=== PATIENT | female | born 1995 | race Caucasian/White ===

== ENCOUNTER 2023-12-03 22:12 | Inpatient (IN) | payer OTHER ==
[~2023-12-03] VITALS: Ht 162.6 cm; Wt 113.3 kg
[~2023-12-03 22:12] MED LIST: DOXY100T PO
[2023-12-03] MEDS ORDERED: DOXY-440 PO (22:22)
[2023-12-03 23:54] LABS: BASO % 0.4 % (0.0-1.0); EOS % 0.2 % (0.0-3.0); HEMOGLOBIN 10.2 g/dl (12.0-15.5); LYMPH # 1.5 10^3/uL (1.5-5.0); LYMPH % 27.3 % (24.0-44.0); MEAN CORPUSCULAR HEMOGLOBIN 23.7 pg (27.0-33.0); MEAN CORPUSCULAR VOLUME 79.1 fl (80.0-96.0); MONO # 0.7 10^3/uL (0.0-0.8); MONO % 13.2 % (2.0-8.0); NEUTROPHILS # 3.2 10^3/uL (1.5-8.5); NEUTROPHILS % 58.5 % (36.0-66.0); PLATELET COUNT, AUTOMATED 275 10^3/uL (150-450); WHITE BLOOD COUNT 5.5 10^3/uL (4.0-10.0)
[2023-12-04 00:06] LABS: INR 1.16; PARTIAL THROMBOPLASTIN TIME 31.3 SECONDS (24.8-34.2); PROTHROMBIN TIME 14.5 SECONDS (12.5-14.5)
[2023-12-04 00:18] LABS: ALBUMIN 3.5 G/DL (3.2-5.2); ALKALINE PHOSPHATASE 78 U/L (46-116); ALT/SGPT 22 U/L (7.0-40); AST/SGOT 14 U/L (<34); BILIRUBIN,DIRECT < 0.1 MG/DL (<0.4); BILIRUBIN,TOTAL 0.2 MG/DL (0.3-1.2); BLOOD UREA NITROGEN 5 MG/DL (9-23); CALCIUM LEVEL 8.7 MG/DL (8.5-10.1); CARBON DIOXIDE LEVEL 26 MMOL/L (20-31); CHLORIDE LEVEL 105 MMOL/L (98-107); CREATININE FOR GFR 0.62 MG/DL (0.55-1.30); GLOMERULAR FILTRATION RATE > 60.0 (>60); GLUCOSE, FASTING 108 MG/DL (60-100); POTASSIUM SERUM 3.2 MMOL/L (3.5-5.1); SODIUM LEVEL 138 MMOL/L (136-145)
[2023-12-04 00:30] LABS: PROCALCITONIN 0.04 ng/ml
[2023-12-04 00:49] LABS: AMYLASE < 20 U/L (30-118)
[2023-12-04] MEDS: ACETAMINOPHEN TAB 650MG DOSE (2X325MG) PO ONE (00:57)
[2023-12-04] MEDS ORDERED: ISOVUE-370 76% 100ML VIAL As Ordered ONE (00:59)
[2023-12-04] MEDS ORDERED: VANCOMYCIN HCL 1,500 MG in IV FLUID PLACE HOLDER 1 EA IV ONE (01:35)
[2023-12-04] MEDS: VANCOMYCIN HCL 750 MG, VIAL MATE ADAPTER 1 EACH in D5W 250 ML IV ONE ×2 (02:00→02:05)
[2023-12-04] MEDS ORDERED: BUPR150T12 PO (02:06)
[2023-12-04] MEDS ORDERED: OMEP40CA5 PO (02:06)
[2023-12-04] MEDS ORDERED: BUDE10.22 PO (02:06)
[2023-12-04] MEDS ORDERED: ADDE20CA3 PO (02:06)
[2023-12-04] MEDS ORDERED: METO5TAB2 PO (02:06)
[2023-12-04] MEDS ORDERED: BUSP5TA PO (02:06)
[2023-12-04] MEDS ORDERED: HOME MED LIST COMPLETE! XX SCH (02:10)
[2023-12-04 03:44] LABS: APPEARANCE, URINE CLEAR (CLEAR); BACTERIA, URINE AUTO 1+ (NEGATIVE); BILIRUBIN, URINE AUTO NEGATIVE (NEGATIVE); BLOOD, URINE BLOOD 1+ (NEGATIVE); COLOR, URINE YELLOW (YELLOW); GLUCOSE, URINE (UA) AUTO NEGATIVE (NEGATIVE); KETONE, URINE AUTO TRACE mg/dL (NEGATIVE); LEUKOCYTE ESTERASE, URINE AUTO NEGATIVE (NEGATIVE); MUCUS, URINE SMALL (NEGATIVE); NITRITE, URINE AUTO NEGATIVE (NEGATIVE); PROTEIN, URINE AUTO NEGATIVE (NEGATIVE); RBC, URINE AUTO 1 /HPF (0-3); SPECIFIC GRAVITY URINE AUTO 1.048 (1.002-1.035); SQUAMOUS EPITHELIAL CELL UR AU 1 /HPF (0-6); UROBILINOGEN, URINE AUTO 0.2 mg/dL (0.0-2.0); WBC, URINE AUTO 0 /HPF (0-3)
[2023-12-04] MEDS: PANTOPRAZOLE 40MG TAB (PROTONIX) PO ONE (04:35)
[2023-12-04] MEDS: METOCLOPRAMIDE 5 MG TAB PO PRN (04:47)
[2023-12-04 08:11] LABS: MEAN CORPUSCULAR HEMOGLOBIN 23.6 pg (27.0-33.0); MEAN CORPUSCULAR HGB CONC 29.4 g/dl (32.0-36.5); MEAN CORPUSCULAR VOLUME 80.2 fl (80.0-96.0); PLATELET COUNT, AUTOMATED 269 10^3/uL (150-450); RED BLOOD COUNT 4.24 10^6/uL (4.00-5.40); WHITE BLOOD COUNT 5.3 10^3/uL (4.0-10.0)
[2023-12-04] MEDS: metFORMIN (GLUCOPHAGE) 500MG TAB PO SCH (08:15)
[2023-12-04] MEDS: buPROPion **XL** TABLET 150MG (WELLBUTRIN XL) PO SCH (08:16)
[2023-12-04] MEDS: busPIRone 5 MG TAB PO SCH (08:16)
[2023-12-04] MEDS: POTASSIUM CHLORIDE 10MEQ SR TABLET PO ONE (08:16)
[2023-12-04] MEDS: AMPHETAMINE/DEXTROAMPHETAMINE 5 MG *ER* CAPSULE (ADDERALL XR) PO SCH (08:16)
[2023-12-04] MEDS: VANCOMYCIN HCL 1,000 MG, VIAL MATE ADAPTER 1 EACH in D5W 250 ML IV SCH (08:16)
[2023-12-04] MEDS: SYMBICORT 80/4.5MCG INHALER 6GM INH SCH (08:25)
[2023-12-04 08:41] LABS: ALBUMIN 3.2 G/DL (3.2-5.2); ALKALINE PHOSPHATASE 71 U/L (46-116); ALT/SGPT 19 U/L (7.0-40); AST/SGOT 14 U/L (<34); BILIRUBIN,TOTAL 0.3 MG/DL (0.3-1.2); BLOOD UREA NITROGEN < 5 MG/DL (9-23); CALCIUM LEVEL 8.4 MG/DL (8.5-10.1); CARBON DIOXIDE LEVEL 30 MMOL/L (20-31); CHLORIDE LEVEL 105 MMOL/L (98-107); CREATININE FOR GFR 0.58 MG/DL (0.55-1.30); GLOMERULAR FILTRATION RATE > 60.0 (>60); GLUCOSE, FASTING 94 MG/DL (60-100); POTASSIUM SERUM 3.6 MMOL/L (3.5-5.1); SODIUM LEVEL 140 MMOL/L (136-145); TOTAL PROTEIN 6.4 G/DL (5.7-8.2)
[2023-12-04] MEDS ORDERED: VANCOMYCIN HCL 1,000 MG, VIAL MATE ADAPTER 1 EACH in D5W 250 ML IV ONE (09:00)
[2023-12-04] MEDS ORDERED: DOXYCYCLINE HYCLATE 100MG TABLET PO SCH (09:00)
[2023-12-04] MEDS: diphenhydrAMINE 50MG/ML VIAL IV PRN (09:28)
[2023-12-04] MEDS: ACETAMINOPHEN TAB 650MG DOSE (2X325MG) PO PRN (09:29)
[2023-12-04] MEDS: DOXYCYCLINE HYCLATE 100MG TABLET PO SCH (09:29)
[2023-12-04 12:03] VITALS: BP 102/56; TEMP 97.2; O2SAT 99
[2023-12-04 20:00] VITALS: BP 103/56; TEMP 97.7; O2SAT 100
[2023-12-04] MEDS: LACTOBACILLUS ACIDOPHILUS CAP (BACID) PO ONE (22:30)
[2023-12-05] MEDS ORDERED: BENA25CA4 PO (21:28)
== END 2023-12-04 22:45 | disposition left against medical advice (07) | DRG 603 ==
LOC: M ED 22:12 → M ED INP 12-04 02:52 → M MSPAV 12-04 12:04
PROVIDERS: ADMIT Internal Medicine; ATTEND Internal Medicine
DX: L02.412 Cutaneous abscess of left axilla (principal); F41.9 Anxiety disorder, unspecified; L03.112 Cellulitis of left axilla; F32.A Depression, unspecified; F90.9 Attention-deficit hyperactivity disorder, unspecified type; F17.290 Nicotine dependence, other tobacco product, uncomplicated; E87.6 Hypokalemia; Z88.0 Allergy status to penicillin; Z91.040 Latex allergy status; Z88.8 Allergy status to other drugs, medicaments and biological substances; Z79.899 Other long term (current) drug therapy; L73.2 Hidradenitis suppurativa

== ENCOUNTER 2023-12-05 15:40 | Emergency (ER) | payer OTHER ==
[~2023-12-05] VITALS: Ht 162.6 cm; Wt 109.4 kg
[~2023-12-05 15:40] MED LIST changes: +ADDE20CA3 PO; +BUDE10.22 PO; +BUPR150T12 PO; +BUSP5TA PO; +DOXY-440 PO; +METO5TAB2 PO; +OMEP40CA5 PO
[2023-12-05 18:09] LABS: BASO % 0.6 % (0.0-1.0); EOS # 0.1 10^3/uL (0.0-0.5); HEMATOCRIT 36.1 % (36.0-47.0); HEMOGLOBIN 10.7 g/dl (12.0-15.5); LYMPH # 1.6 10^3/uL (1.5-5.0); LYMPH % 46.6 % (24.0-44.0); MEAN CORPUSCULAR HEMOGLOBIN 23.3 pg (27.0-33.0); MEAN CORPUSCULAR HGB CONC 29.6 g/dl (32.0-36.5); MEAN CORPUSCULAR VOLUME 78.6 fl (80.0-96.0); MONO # 0.2 10^3/uL (0.0-0.8); MONO % 6.6 % (2.0-8.0); NEUTROPHILS # 1.5 10^3/uL (1.5-8.5); NEUTROPHILS % 41.6 % (36.0-66.0); PLATELET COUNT, AUTOMATED 314 10^3/uL (150-450); RED BLOOD COUNT 4.59 10^6/uL (4.00-5.40); WHITE BLOOD COUNT 3.5 10^3/uL (4.0-10.0)
[2023-12-05 18:20] LABS: ERYTHROCYTE SEDIMENTATION RATE 70 mm/hr (0-20)
[2023-12-05 18:38] LABS: BLOOD UREA NITROGEN < 5 MG/DL (9-23); CALCIUM LEVEL 8.9 MG/DL (8.5-10.1); CARBON DIOXIDE LEVEL 28 MMOL/L (20-31); CHLORIDE LEVEL 105 MMOL/L (98-107); CREATININE FOR GFR 0.51 MG/DL (0.55-1.30); GLOMERULAR FILTRATION RATE > 60.0 (>60); GLUCOSE, FASTING 93 MG/DL (60-100); POTASSIUM SERUM 3.9 MMOL/L (3.5-5.1); SODIUM LEVEL 139 MMOL/L (136-145)
[2023-12-05 21:26] VITALS: BP 100/52; TEMP 97.6; O2SAT 95
[2023-12-05] MEDS ORDERED: BENA25CA4 PO (21:28)
== END 2023-12-05 21:35 | disposition home or self-care (01) ==
LOC: M ED 15:40
DX: R31.9 Hematuria, unspecified (principal); Z48.00 Encounter for change or removal of nonsurgical wound dressing; E11.9 Type 2 diabetes mellitus without complications; Z79.899 Other long term (current) drug therapy; Z79.52 Long term (current) use of systemic steroids; Z79.2 Long term (current) use of antibiotics

== ENCOUNTER → 2024-01-25 | Outpatient (CLI) | payer OTHER ==
[~2024-01-25] MED LIST changes: +BENA25CA4 PO
== END ==
LOC: M CARPUL 11:23
PROVIDERS: ATTEND Internal Medicine
DX: J45.909 Unspecified asthma, uncomplicated (principal)

== ENCOUNTER → 2024-11-28 | Outpatient (CLI) | payer OTHER | LOC: M RAD 07:59 | PROVIDERS: ATTEND Student in an Organized Health Care Education/Training Program | DX: G43.119 Migraine with aura, intractable, without status migrainosus (principal); M48.061 Spinal stenosis, lumbar region without neurogenic claudication; M54.50 Low back pain, unspecified; R93.89 Abnormal findings on diagnostic imaging of other specified body structures ==

== ENCOUNTER 2024-12-12 14:09 | Outpatient (CLI) | payer OTHER ==
[~2024-12-12] VITALS: Ht 162.6 cm; Wt 106.3 kg
[~2024-12-12 14:09] MED LIST changes: +ALBUTEROL SULFATE 2.5 MG/0.5 ML INH CONCENTRATE NEB SOLN INH PRN; +EPINEPHrine INJ 1 MG/ML 1ML AMP IM PRN; +diphenhydrAMINE 50 MG/ML VIAL IV PRN
[2024-12-12 14:30] VITALS: BP 117/55; O2SAT 100
[2024-12-12] MEDS ORDERED: NS (Normal Saline) 0.9% 1,000 ML IV SCH (14:30)
[2024-12-12] MEDS: FERRIC CARBOXYMALTOSE 750 MG (VIAL MATE) IN 100ML NS IV ONE (14:32)
[2024-12-12 15:29] VITALS: BP 103/58; O2SAT 97
== END 2024-12-12 15:20 | disposition home or self-care (01) ==
LOC: M INFU 14:09
PROVIDERS: ATTEND Student in an Organized Health Care Education/Training Program
DX: D50.9 Iron deficiency anemia, unspecified (principal); Z88.0 Allergy status to penicillin; Z88.1 Allergy status to other antibiotic agents; Z88.6 Allergy status to analgesic agent; Z91.040 Latex allergy status
CPT/HCPCS: 96365; J1439

== ENCOUNTER 2024-12-19 14:20 | Outpatient (CLI) | payer OTHER ==
[~2024-12-19] VITALS: Ht 162.6 cm; Wt 104.5 kg
[2024-12-19 14:24] VITALS: BP 138/63; O2SAT 99
[2024-12-19] MEDS ORDERED: NS (Normal Saline) 0.9% 1,000 ML IV SCH (14:30)
[2024-12-19] MEDS: FERRIC CARBOXYMALTOSE 750 MG (VIAL MATE) IN 100ML NS IV ONE (14:37)
[2024-12-19 14:55] VITALS: BP 129/87; O2SAT 100
== END 2024-12-19 15:00 | disposition home or self-care (01) ==
LOC: M INFU 14:20
PROVIDERS: ATTEND Student in an Organized Health Care Education/Training Program
DX: D50.9 Iron deficiency anemia, unspecified (principal); Z88.0 Allergy status to penicillin; Z88.1 Allergy status to other antibiotic agents; Z88.6 Allergy status to analgesic agent; Z88.8 Allergy status to other drugs, medicaments and biological substances; Z91.040 Latex allergy status
CPT/HCPCS: 96365; J1439

== ENCOUNTER → 2025-04-28 | Outpatient (CLI) | payer OTHER ==
[~2025-04-28] MED LIST changes: -ALBUTEROL SULFATE 2.5 MG/0.5 ML INH CONCENTRATE NEB SOLN INH PRN; -EPINEPHrine INJ 1 MG/ML 1ML AMP IM PRN; -diphenhydrAMINE 50 MG/ML VIAL IV PRN
== END ==
LOC: M PLAIMG 07:38
PROVIDERS: ATTEND Physician Assistant Medical
DX: J32.4 Chronic pansinusitis (principal)